=== PATIENT | female | born 2005 | race Two or more races ===

== ENCOUNTER 2024-11-06 12:36 | Emergency (ER) | payer MEDICAID, SELFPAY ==
[2024-11-06 12:37] VITALS: BMI 32.5
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
[2024-11-06 13:17] VITALS: BP 118/70; PULSE 62; RESP 18; TEMP 36.7; O2SAT 97
== END 2024-11-06 14:41 | disposition home or self-care (01) ==
PROVIDERS: Emergency Provider Family Medicine
DX: S82.892A Other fracture of left lower leg, initial encounter for closed fracture (principal); S91.012A Laceration without foreign body, left ankle, initial encounter; V89.2XXA Person injured in unspecified motor-vehicle accident, traffic, initial encounter
CPT/HCPCS: 29515; 99282